=== PATIENT | male | born 1940 | race Caucasian/White ===

== ENCOUNTER 2017-04-15 09:28 | Emergency (ER) | payer OTHER ==
[~2017-04-15] VITALS: Ht 160 cm; Wt 110.0 kg
[2017-04-15 09:52] LABS: HEMOGLOBIN 14.5 g/dl (14.0-18.0); IMMATURE GRANULOCYTES 0.3 % (0.0-1.0); MEAN CELL VOLUME 96.2 fL CALC (80.0-100.0); MEAN CORPUSCULAR HGB CONC 32.2 g/L CALC (32.0-36.0); NEUT# 10.37 thou/uL (1.82-7.42); RED BLOOD COUNT 4.68 mill/uL (4.70-6.10); RED CELL DISTRI WIDTH 14.3 % (11.5-15.5)
[2017-04-15 10:05] LABS: ALKALINE PHOSPHATASE 49 u/l (38-126); ANION GAP 13 (6-22 (CALC)); BILIRUBIN, TOTAL 0.4 mg/dL (0.0-1.4); BUN 28 mg/dL (8-23); BUN/CREATININE RATIO 35 (12-20 (CALC)); CALCIUM 9.5 mg/dL (8.4-10.2); CARBON DIOXIDE 31 mmol/l (22-30); CHLORIDE 103 mmol/l (95-108); CREATININE 0.8 mg/dL (0.7-1.3); GFR > 60 ML/MIN (>=60 (CALC)); GFR FOR AFR.AMER. > 60 ML/MIN (>=60 (CALC)); GLUCOSE 180 mg/dL (82-115); POTASSIUM 4.7 mmol/l (3.5-5.1); SGOT/AST 43 u/l (19-48); SGPT/ALT 58 u/l (11-66); SODIUM 142 mmol/l (137-146); TOTAL PROTEIN 6.9 g/dL (6.3-8.2)
[2017-04-15] MEDS ORDERED: LYRICA75 MG PO (10:15)
[2017-04-15 10:16] LABS: MYOGLOBIN 333 ng/mL (0 - 121)
[2017-04-15] MEDS ORDERED: VENTOLIN H108 MCG/AC (10:16)
[2017-04-15] MEDS ORDERED: CRESTOR10 MG PO (10:17)
[2017-04-15] MEDS ORDERED: ASPIRIN 81 LOW81 MG (10:17)
[2017-04-15] MEDS ORDERED: AVAPRO300 MG PO (10:17)
[2017-04-15] MEDS ORDERED: DOVONEX0.0051 EX (10:18)
[2017-04-15] MEDS ORDERED: SPIRIVA HANDIH18 MCG (10:18)
[2017-04-15] MEDS ORDERED: GLYBURIDE5 M1 PO (10:18)
[2017-04-15] MEDS ORDERED: JANUMET1 TA1 PO (10:19)
[2017-04-15] MEDS ORDERED: ADVAIR DISK1 INH (10:19)
[2017-04-15 14:55] VITALS: BP 159/72
== END 2017-04-15 15:24 | disposition short-term general hospital (02) | DRG 208 ==
LOC: ED 09:28 → ED-I 11:16 → ED 15:24
PROVIDERS: Emergency Medicine
PROC: 0BH17EZ Insertion of Endotracheal Airway into Trachea, Via Natural or Artificial Opening (ICD-10-PCS; principal; 2017-04-15)
PROC: 5A1935Z Respiratory Ventilation, Less than 24 Consecutive Hours (ICD-10-PCS; 2017-04-15)
PROC: 5A09357 Assistance with Respiratory Ventilation, Less than 24 Consecutive Hours, Continuous Positive Airway Pressure (ICD-10-PCS; 2017-04-15)
DX: J96.00 Acute respiratory failure, unspecified whether with hypoxia or hypercapnia (principal); J44.1 Chronic obstructive pulmonary disease with (acute) exacerbation; E11.9 Type 2 diabetes mellitus without complications; R41.82 Altered mental status, unspecified; F17.210 Nicotine dependence, cigarettes, uncomplicated